=== PATIENT | male | born 1980 | race Two or more races ===

== ENCOUNTER 2024-07-23 05:55 | Day surgery (SDC) | payer MEDICAID, SELFPAY ==
[2024-07-22 14:32] VITALS: BMI 26.4
[2024-07-22 16:01] LABS: Basophils % (Auto) 1 % (0-2.5); Eosinophils # (Auto) 0.1 Thou/mm3 (0.0-0.5); Eosinophils % (Auto) 1 % (0-10); Hemoglobin 15.1 g/dL (13.5-16.0); Immature Granulocytes % (Auto) 0 % (0-0); Immature Granulocytes Auto 0.02 Thou/mm3 (0.00-0.00); Lymphocytes # (Auto) 2.7 Thou/mm3 (1.0-4.8); Lymphocytes % (Auto) 38 % (10-50); Mean Corpuscular HGB Conc 32.8 g/dl (31.0-37.0); Mean Corpuscular Hemoglobin 30.9 pg (25.0-35.0); Mean Corpuscular Volume 94 fL (80-100); Monocytes # (Auto) 0.6 Thou/mm3 (0.0-0.8); Monocytes % (Auto) 9 % (0-12); Neutrophils # (Auto) 3.6 Thou/mm3 (1.8-7.7); Neutrophils % (Auto) 50 % (37-80); Nucleated Red Blood Cell % 0 /100 WBC (0); Platelet Count 324 Thou/mm3 (140-440); RDW Standard Deviation 47.3 fL (35.1-43.9); Red Blood Count 4.89 Miln/mm3 (4.50-5.90); White Blood Count 7.1 Thou/mm3 (3.8-10.6)
[2024-07-22 16:08] LABS: Partial Thromboplastin Time 25.8 Seconds (22.0-36.0); Prothrombin Time 11.1 Seconds (9.0-12.2)
[2024-07-22 16:30] LABS: Alanine Aminotransferase 27 U/L (10-49); Albumin, Serum 4.4 gm/dL (3.5-5.0); Albumin/Globulin Ratio 1.7 (1.2-2.2); Alkaline Phosphatase 65 U/L (46-116); Anion Gap 5 (7-16); Aspartate Amino Transferase 21 U/L (0-34); BUN/Creatinine Ratio 13 Ratio (12-20); Bilirubin,Total 0.8 mg/dL (0.3-1.2); Blood Urea Nitrogen 10 mg/dL (9-23); Calcium 9.1 mg/dL (8.3-10.6); Calcium (Corrected) 9.1 mg/dL (8.5-10.1); Carbon Dioxide 34.4 mMol/L (20.0-31.0); Chloride 102 mMol/L (98-107); Creatinine (Component) 0.8 mg/dL (0.6-1.3); Estimated Creatinine Clearance 121.7 mL/min (>60); Globulin 2.6 gm/dL (2.3-3.5); Glucose 98 mg/dL (74-106); Osmolality,Calculated 280 (275-295); Potassium 4.1 mMol/L (3.4-5.1); Sodium 141 mMol/L (136-145); eGFR > 60 See Note
[2024-07-23] VITALS (18 sets, daily range): BP systolic 122–143; BP diastolic 75–103; PULSE 75–94; RESP 12–93; TEMP 36.4–37.2; O2SAT 93–99; BMI 29.0
--- NOTE | 2024-07-23 07:29 | SUR.PREOP ---
Patient expressed gratitude for prayer before their procedure.
[2024-07-23] MEDS: RINGERS LACTATED 1000 ML 1,000 ML 20 ML IV (07:41)
--- NOTE | 2024-07-23 11:10 | SUR.PHASEI ---
1110: pt recieved from OR via [facility]. received report from JOSUÉ Quevedo, Luisana, student [employer] and Orlando MUNOZ. oral airway in place. pt sleeping at this time. no s/s of resp. distress or discomfort. no s/s of pain or discomfort. dressing to mid abdomen and right groin clean, dry and intact. no bleeding or discharge noted from dressing. no redness sorrounding dressing noted.
--- NOTE | 2024-07-23 11:24 | SUR.PHASEI ---
1124: remove oral airway at this time, tolerated well.
--- NOTE | 2024-07-23 11:40 | SUR.PHASEI ---
1140: pt able to verbalizes his pain to mid abdomen when ask.
[2024-07-23] MEDS: fentaNYL CIT INJ 50 mCg/ML AMP 2ML IV (11:41)
--- NOTE | 2024-07-23 11:55 | SUR.PHASEI ---
1155: dressing to mid abdomen and right groin clean, dry and intact. no bleeding or discharge noted. no redness on sorrounding dressing.
[2024-07-23] MEDS: HYDROmorphone INJ 2 MG/ML VIAL 0.5 MG IV ×3 (12:05→13:11)
--- NOTE | 2024-07-23 12:15 | SUR.PHASEII ---
1215: report given to JOSUÉ Mercado. pt alert and oriented to name and place. no s/s of resp. distress or discomfort. dressing to mid abdomen and right groin clean, dry and intact. no bleeding or discharge noted.
--- NOTE | 2024-07-23 12:25 | SUR.PHASEII ---
Called medical transportation- [facility] notifying that patient not going home today. Dr. Raines placed for observation for 24 hours and patient preferred to stay for 24 hours for observation. per [facility] transportation staff, they will cancel the order to pick-up patient.
--- NOTE | 2024-07-23 13:06 | PD.SUROPNT ---
Date of Procedure 07/23/24 Pre Op Diagnosis 1. Incarcerated symptomatic umbilical hernia 2. Incarcerated right inguinal hernia Post Op Diagnosis Same, direct inguinal hernia on the right groin Procedure Repair of the incarcerated umbilical hernia with resection of the omentum and placement of 1.7 inch Ventralex mesh Repair of the right direct inguinal hernia with reconstruction of the floor with Ventralex ST mesh measuring 3.2 inches in diameter and onlay patch with 2 x 4 Marlex mesh Findings Patient was found to have a large umbilical hernia with omentum stuck in it. I was not able to reduce the hernia even after anesthesia. I therefore have to resect part of the omentum then proceed with repair Procedure Description Of the patient was brought to the operating room endotracheal anesthesia was given. Abdomen was prepped with ChloraPrep solution and draped in a sterile manner. Timeout was performed. I approached the umbilical hernia first. I made this curved incision below the umbilicus and dissected out the large hernial sac which was almost size of a tennis ball. It had a 2 portion and contained omentum. I excised the sac and try to reduce the omentum and I could only do it partially. The opening in the fascia was small and therefore reduction of this omentum was very difficult. Therefore I resected a portion of the omentum by clamping it with Hensley clamp and suture ligating with 0 chromic. Then the omentum was reduced. Then the sac was excised and the bleeding points were checked with 2-0 chromic sutures after defining the sac I felt that the defect was about 2 to 3 cm in width. I chose a 1.7 inch Ventralex mesh and placed it inside and attached the Marlex straps to the edges using 2 oh. At the end the repair appeared sound. The fascial edges were also approximated with interrupted 2-0 Prolene over the mesh without much tension or denting the mesh. Subcutaneous tissue was closed in 2 layers using chromic and plain sutures. Then I injected half percent Marcaine for analgesia over the edges the skin was closed with 4-0 Monocryl subcuticular stitch. Then attention was turned onto the right direct inguinal hernia as follows: . Then the [right] inguinal incision was made for about [7 cm] in length. External oblique was incised and the cord structures were encircled and(. The patient was found to have no indirect sac and it was obvious that the patient had a large direct inguinal hernia because of the bulging medial to the cord structures in the transversalis fascia over hasselbach triangle The cord structures were encircled around a Brandi drain. The floor of the inguinal canal was reconstructed as follows: I made an incision in the transversalis fascia which was thin and attenuated. The preperitoneal fat was entered and the used 3 4 x 4's to create a space to place the modified Ventralex ST mesh measuring 3.2 inches in diameter. After the mesh was placed in the superior strap was attached to the internal oblique with a 2-0 Prolene. The inferior strap was attached to the Alfredo's ligament using 2-0 Prolene. The sponge count was made to confirm that all of them were removed before the mesh was placed in place. Then I approximated the transversalis fascia over the mesh using a 2-0 Prolene. At the end of the floor of the inguinal canal appeared to be strong and without any weakness. Then I placed an onlay mesh over the floor and attached it medially to the pubic tubercle with a 2-0 Prolene suture. Laterally it was encircling the cord structures after making a hole in the mesh. The tails of the mesh was tucked underneath the external oblique. After checking for any bleeding point the external oblique was closed with a running 2-0 Vicryl. Subcutaneous tissues was closed with 3`0 plain and I injected half percent Marcaine with epinephrine for analgesia. The subcuticular approximation was performed with 4-0 Monocryl. Dressing was applied with Adaptic and 4 x 4 and the patient tolerated the procedure well and was returned to recovery room in stable condition. Anesthesia GET[employer] Implants 1.7 inch Ventralex mesh for umbilical hernia, 3.[address] mesh fo Pathology / specimen None IVF Infused 1,000 Estimated Blood Loss 100 Condition Stable Disposition PACU Surgeon Colin Chaves MD Surgical Staff Operation Date: 07/23/24 08:00 Case Staff WATERPROOFING MACHINE OPERATOR: Estephania Nunez WATERPROOFING MACHINE OPERATOR: Orlando Rees RNmobile lounge driver: Cheryl Copeland
--- NOTE | 2024-07-23 15:00 | SUR.PHASEII ---
pt resting comfortably in gurney, VS stable, dressing to abdomen and inguinal region clean, dry, and intact, pt tolerating oral fluids without difficulty swallowing or n/v, report called to Tristian MOSES, pt transferred to room at this time.
[2024-07-23] MEDS: SODIUM CHLORIDE 0.9% 1000 ML 1,000 ML 50 ML IV (16:18)
[2024-07-23] MEDS: MORPHINE SULF INJ 10 MG/ML VIAL 5 MG IVP ×2 (16:30→20:41)
[2024-07-24] VITALS (7 sets, daily range): BP systolic 133–142; BP diastolic 74–96; PULSE 63–94; RESP 17–94; TEMP 36.2–37.1; O2SAT 91–94
[2024-07-24] MEDS: MORPHINE SULF INJ 10 MG/ML VIAL 5 MG IVP ×2 (04:37→08:31)
[2024-07-24] MEDS: KETOROLAC INJ 30 MG/ML VIAL IVP (12:27)
--- NOTE | 2024-07-24 12:44 | PD.SURPROG ---
Documentation for date of: 07/24/24 Subjective Subjective Narrative: The patient is feeling better today. He received 3 doses of morphine for the pain control last night Exam Vital Signs Temp Pulse Resp BP Pulse Ox O2 Del Method O2 Flow Rate 97.1 F 94 20 139/96 H 93 L Room Air 2 07/24/24 08:00 07/24/24 11:18 07/24/24 11:18 07/24/24 08:00 07/24/24 08:00 07/24/24 08:00 07/24/24 05:00 His vital signs are normal Results Results: Laboratory Laboratory Narrative: Laboratory results are normal Assessment & Plan Assessment Additional comments: Impression: Stable course following repair of the large ventral hernia and right inguinal hernia Plan Plan: We shall discharge the patient today and follow him up in my office on . Procedures Procedures Repair of the incarcerated umbilical hernia with resection of the omentum and placement of 1.7 inch Ventralex mesh Repair of the right direct inguinal hernia with reconstruction of the floor with Ventralex ST mesh measuring 3.2 inches in diameter and onlay patch with 2 x 4 Marlex mesh
--- NOTE | 2024-07-24 14:20 | PC.NURSE ---
Pt reports no issue with voiding, pain, hesitaiton. has voided twice this morning.
== END 2024-07-24 15:20 | disposition home or self-care (01) ==
LOC: S2EX 11:27 → S3SX 07-24 12:47
PROVIDERS: PCP Family Medicine; Referring Provider Surgery; Visit Provider Surgery
PROC: (CPT 49507; principal; 2024-07-23 08:00)
PROC: (CPT 49507; 2024-07-23 08:00)
DX: K40.30 Unilateral inguinal hernia, with obstruction, without gangrene, not specified as recurrent (principal); K42.0 Umbilical hernia with obstruction, without gangrene
CPT/HCPCS: 49507; 49592; 36415; 80053; 85025; 85610; 85730; 94664; A4217; A4649; C1781; J0131; J1100; J1171; J1885; J2250; J2270; J2371; J2405; J2704; J2710; J3010; J3490; J7030; J7120; J1596